=== PATIENT | male | born 1985 | race American Indian/Alaskan Native ===

== ENCOUNTER 2019-04-26 16:51 | Emergency (ER) | payer SELFPAY ==
[2019-04-26] MEDS ORDERED: LIDOCAINE-MPF (1%) 10 MG/1 ML VIAL 5 ML INFILTRATI ONE (18:19)
[2019-04-26] MEDS ORDERED: AZITHROMYCIN 250 MG TAB PO ONE (18:19)
--- NOTE | 2019-04-26 18:20 | Emergency Department Report ---
ED Dysuria HPI - HPI Chief Complaint: Urogenital-Male Stated Complaint: DISCHARGE Time Seen by Provider: 04/26/19 18:18 Duration: 3 Days Location of Discomfort: Suprapubic Severity: Mild Symptoms: Dysuria: Yes, Frequency: No, Suprapubic Pain: No, Flank Pain: No, Fever: No, Hematuria: No, Abdominal Pain: No, Previous UTI's: No Other History: 34 YO WITH PENILE DC SEVERAL DAYS AFTER UNPROTECTED SEX. NO LESIONS. NO FEVER. NO TESTICULAR PAIN ED Review of Systems ROS: Stated complaint: DISCHARGE Other details as noted in HPI Comment: All other systems reviewed and negative ED Past Medical Hx - Past Medical History Previous Medical History?: No Hx Seizures: No - Surgical History Past Surgical History?: No - Social History Smoking Status: Current Every Day Smoker Dysuria Exam - Exam General: Vital signs noted. No distress. Alert and acting appropriately. Exam: Yes Moist Mucous Membranes, No CVA Tenderness, No Abdominal Tenderness, No Rigidity or Guarding ED Course Vital Signs 04/26/19 04/26/19 17:00 17:04 Temperature 98.7 F 98.7 F Pulse Rate 75 75 Respiratory 16 16 Rate Blood Pressure 117/72 Blood Pressure 117/72 [Right] O2 Sat by Pulse 97 97 Oximetry ED Medical Decision Making - Medical Decision Making CO DISCHARGE AMANDO DISCUSSED SAFE SEX DC HOME WITH [facility] RE[facility]ERR[facility] Vital Signs 04/26/19 04/26/19 17:00 17:04 Temperature 98.7 F 98.7 F Pulse Rate 75 75 Respiratory 16 16 Rate Blood Pressure 117/72 Blood Pressure 117/72 [Right] O2 Sat by Pulse 97 97 Oximetry - Differential Diagnosis STD Critical care attestation.: If time is entered above; I have spent that time in minutes in the direct care of this critically ill patient, excluding procedure time. ED Disposition Clinical Impression: STD (male) Disposition: DC-01 TO HOME OR SELFCARE Is pt being admited?: No Does the pt Need Aspirin: No Condition: Stable Instructions: Safe Sex (ED) Referrals: [facility] Depart [Outside] - 3-5 Days Time of Disposition: 18:18
[2019-04-26 18:53] VITALS: BP 118/80
== END 2019-04-26 18:52 | disposition home or self-care (01) ==
LOC: ED 16:51
DX: A64 Unspecified sexually transmitted disease (principal); F17.200 Nicotine dependence, unspecified, uncomplicated
CPT/HCPCS: 96372; J0696